=== PATIENT | female | born 1995 | race Caucasian/White ===

== ENCOUNTER 2018-05-01 10:39 | Emergency (ER) | payer BC ==
[~2018-05-01] VITALS: Ht 157.5 cm; Wt 70.5 kg
[~2018-05-01 10:39] MED LIST: NO HOME MEDICATIONS
[2018-05-01 10:41] VITALS: TEMP 98.1
[2018-05-01] MEDS ORDERED: BIRTH CONTROL (10:45)
[2018-05-01 11:37] LABS: BASO % 0.4 % (0.0-2.0); EOS # 0.1 (0.0-0.7); EOS % 0.8 % (0-4.0); GRAN # 5.2 (1.4-6.5); HEMATOCRIT 43.2 % (37.0-47.0); HEMOGLOBIN 14.4 g/dl (12.5-16.0); LYMPH # 2.3 (1.2-3.4); LYMPH % 27.6 % (20.0-51.0); MEAN CELL VOLUME 88 fl (80.0-100.0); MEAN CORPUSCULAR HEMOGLOBIN 29 pg (27.0-31.0); MEAN CORPUSCULAR HGB CONC 33 g/dl (33.0-37.0); MEAN PLATELET VOLUME 9.7 fl (7.4-10.4); MONO # 0.8 (0.1-0.6); PLATELET COUNT 291 K/mm3 (130-400); RED BLOOD COUNT 4.89 M/mm3 (4.10-5.30); REDCELL DISTRIBUTION WIDTH-CV 13.4 % (11.5-14.5)
[2018-05-01] MEDS ORDERED: ORTHO-CYCLEN 351 TAB PO (11:37)
[2018-05-01 11:47] LABS: BILIRUBIN,TOTAL 0.4 mg/dL (0.0-1.0); C-REACTIVE PROTEIN 1.1 mg/dL (0.0-0.9); CALCIUM 9.3 mg/dL (8.4-10.2); CREATININE, serum 0.73 mg/dL (0.52-1.25); POTASSIUM 3.9 mmol/L (3.4-5.0); TOTAL PROTEIN 7.5 gm/dL (6.4-8.2)
[2018-05-01 11:51] LABS: COLLECTION METHOD CATHETER
[2018-05-01 11:58] LABS: MUCOUS Present /lpf; PH 6 (5-8); SQUAMOUS EPITHELIAL None Seen /hpf; URINE APPEARANCE Clear; URINE BACTERIA None Seen /hpf; URINE BILIRUBIN Negative (NEGATIVE); URINE BLOOD Negative (NEGATIVE); URINE COLOR Straw; URINE GLUCOSE Negative (NEGATIVE); URINE KETONE Negative (NEGATIVE); URINE LEUKOCYTE ESTERASE Negative (NEGATIVE); URINE NITRATE Negative (NEGATIVE); URINE PROTEIN(semi-quant) Negative (NEGATIVE); URINE RBC None Seen /hpf; URINE UROBILINOGEN Negative (NEGATIVE)
[2018-05-01] MEDS ORDERED: NORCO 325 MG-51 TAB PO (13:07)
[2018-05-01 13:16] VITALS: BP 124/66; PULSE 72
== END 2018-05-01 13:17 | disposition home or self-care (01) ==
LOC: COL.ER 10:39
PROVIDERS: Nurse Practitioner
DX: R10.11 Right upper quadrant pain (principal); Z88.0 Allergy status to penicillin
CPT/HCPCS: J2270; J2405; J3010; J7030

== ENCOUNTER 2019-12-24 08:13 | Emergency (ER) | payer BC ==
[~2019-12-24] VITALS: Ht 157.5 cm; Wt 70.0 kg
[~2019-12-24 08:13] MED LIST changes: +BIRTH CONTROL; +NORCO 325 MG-51 TAB PO; +ORTHO-CYCLEN 351 TAB PO
[2019-12-24 08:16] VITALS: TEMP 97.9
[2019-12-24] MEDS ORDERED: WELLBUTRIN XL150 MG PO (08:29)
[2019-12-24] MEDS ORDERED: LO LOESTRIN FE1 TAB PO (08:31)
[2019-12-24] MEDS ORDERED: ADIPEX-P37.5 MG PO (08:32)
[2019-12-24 09:07] LABS: BASO # 0.1 (0.0-0.2); BASO % 0.8 % (0.0-2.0); EOS # 0.1 (0.0-0.7); EOS % 1.6 % (0-4.0); GRAN # 4.7 (1.4-6.5); GRAN % 62.8 % (42.2-75.2); HEMATOCRIT 45.2 % (37.0-47.0); HEMOGLOBIN 15.2 g/dl (12.5-16.0); LYMPH % 26.4 % (20.0-51.0); MEAN CELL VOLUME 87 fl (80.0-100.0); MEAN CORPUSCULAR HEMOGLOBIN 29 pg (27.0-31.0); MEAN CORPUSCULAR HGB CONC 34 g/dl (33.0-37.0); MEAN PLATELET VOLUME 9.6 fl (7.4-10.4); MONO # 0.6 (0.1-0.6); MONO % 8.1 % (1.7-9.3); PLATELET COUNT 349 K/mm3 (130-400); RED BLOOD COUNT 5.22 M/mm3 (4.10-5.30); REDCELL DISTRIBUTION WIDTH-CV 13.3 % (11.5-14.5)
[2019-12-24 09:14] LABS: ALBUMIN 4.6 gm/dL (3.5-5.0); BILIRUBIN,TOTAL 0.5 mg/dL (0.0-1.0); C-REACTIVE PROTEIN 0.8 mg/dL (0.0-0.9); CALCIUM 9.4 mg/dL (8.4-10.2); CREATININE, serum 0.89 (0.52-1.25); POTASSIUM 3.8 mmol/L (3.4-5.0); TOTAL PROTEIN 7.9 gm/dL (6.4-8.2)
[2019-12-24] MEDS ORDERED: ZOFRAN ODT4 MG PO (10:30)
[2019-12-24 10:37] LABS: COLLECTION METHOD CLEAN CATCH
[2019-12-24 10:48] LABS: PH 7 (5-8); SQUAMOUS EPITHELIAL 0-2 /hpf; URINE APPEARANCE Clear; URINE BACTERIA Rare /hpf; URINE BILIRUBIN Negative (NEGATIVE); URINE BLOOD 1+ (NEGATIVE); URINE COLOR Straw; URINE GLUCOSE Negative (NEGATIVE); URINE KETONE Negative (NEGATIVE); URINE LEUKOCYTE ESTERASE Negative (NEGATIVE); URINE NITRATE Negative (NEGATIVE); URINE PROTEIN(semi-quant) Negative (NEGATIVE); URINE RBC 0-2 /hpf; URINE UROBILINOGEN Negative (NEGATIVE)
[2019-12-24 11:58] VITALS: BP 152/98; PULSE 93
== END 2019-12-24 12:00 | disposition home or self-care (01) ==
LOC: COL.ER 08:13
PROVIDERS: Physician Assistant
DX: T43.295A Adverse effect of other antidepressants, initial encounter (principal); R03.0 Elevated blood-pressure reading, without diagnosis of hypertension; F41.9 Anxiety disorder, unspecified; Z88.0 Allergy status to penicillin
CPT/HCPCS: J2060; J2405; J7030

== ENCOUNTER 2021-12-30 08:58 | Inpatient (IN) | payer BC ==
[~2021-12-30] VITALS: Ht 157.5 cm; Wt 94.1 kg
[~2021-12-30 08:58] MED LIST changes: +ADIPEX-P37.5 MG PO; +LO LOESTRIN FE1 TAB PO; +WELLBUTRIN XL150 MG PO; +ZOFRAN ODT4 MG PO
--- NOTE | 2021-12-30 22:20 | NUR ---
G1 at 40.3 weeks gestation to LDR4 with and mother for cytotec induction of labor. Patient reports good movement, denies contractions, LOF, or vaginal bleeeding. Patient changed into gown, wedged left in bed. EFMs explained and applied. VS obtained. Plan of care reviewed.
[2021-12-30 23:00] VITALS: BP 135/92; PULSE 85; TEMP 98.2
[2021-12-30 23:30] VITALS: BP 114/65; PULSE 86
[2021-12-31] VITALS (55 sets, daily range): BP systolic 106–165; BP diastolic 61–102; PULSE 64–103; TEMP 98.3–98.8
--- NOTE | 2021-12-31 00:25 | NUR ---
0025-Cytotec plan discussed with patient and support people. Patient verbalizes understanding and agrees with plan. 0035-IV started to RH. Blood obtained and sent to lab. IV LR infusing. Assessments completed. Consents explained and signed. 0050-SVE /-3. First dose of Cytotec placed, see EMAR. Plan of care discussed.
--- NOTE | 2021-12-31 00:33 | NUR ---
0033-Late decel noted on FHR strip. Patient was repositioned, wedged left. FHR back to baseline.
[2021-12-31] MEDS ORDERED: PRENATAL TABLET PO (01:10)
[2021-12-31 01:49] LABS: BASO # 0.1 K/mm3 (0.0-0.2); BASO % 0.4 % (0.0-2.0); EOS # 0.1 K/mm3 (0.0-0.7); GRAN # 7.8 K/mm3 (1.4-6.5); GRAN % 66.6 % (42.2-75.2); HEMATOCRIT 37.1 % (37.0-47.0); HEMOGLOBIN 12.5 g/dl (12.5-16.0); LYMPH # 2.6 K/mm3 (1.2-3.4); LYMPH % 22.4 % (20.0-51.0); MEAN CELL VOLUME 87 fl (80.0-100.0); MEAN CORPUSCULAR HEMOGLOBIN 29 pg (27-31); MEAN CORPUSCULAR HGB CONC 34 g/dl (33.0-37.0); MEAN PLATELET VOLUME 10.4 fl (7.4-10.4); MONO # 1.1 K/mm3 (0.1-0.6); MONO % 9.2 % (1.7-9.3); PLATELET COUNT 272 K/mm3 (130-400); RED BLOOD COUNT 4.26 M/mm3 (4.10-5.30); REDCELL DISTRIBUTION WIDTH-CV 15.1 % (11.5-14.5)
--- NOTE | 2021-12-31 04:38 | NUR ---
0438-Late decel noted on FHR strip. This RN at bedside. Patient repositioned to . IV bolus started. 0441-FHR back to baseline. SVE FT/60/-3. Plan of care discussed.
--- NOTE | 2021-12-31 07:44 | NUR ---
RECURRENT VARIABLE DECELS DOWN TO 70BPM NOTED ON EFM. RN TO BEDSIDE. PATIENT LEFT LATERAL. LR BOLUS. VARIABLES CONTINUE. PATIENT RIGHT LATERAL. SVE FT/60/-3. MD MADHAVI ON UNIT AND UPDATED ON PATIENT. SEE PHYSICIAN NOTIFICATION. 1516 MD MADHAVI REVIEWS STRIPS. TO BEDSIDE AND REVIEWS PLAN OF CARE WITH PATIENT AND FAMILY.
--- NOTE | 2021-12-31 08:15 | NUR ---
PATIENT OFF EFM FOR BRP FROM [id number]. CARE ONGOING.
--- NOTE | 2021-12-31 09:11 | NUR ---
PATIENT REMOVED FROM EFM FOR BRP AT 0911. PATIENT PLACED ON EFM AT 0918. CARE ONGOING.
--- NOTE | 2021-12-31 10:17 | NUR ---
1017- Moderate variabilty, no variable decel noted in last 15min. Pitocin to 4mu.
--- NOTE | 2021-12-31 10:35 | NUR ---
Bilateral side lying hip release.
--- NOTE | 2021-12-31 10:55 | NUR ---
1055- Dr. Del Cid updated on pt. See physician notification. Patient position forward inversion/knees chest. 1100- Patient wedge right with RLS. Recurrent variable decels continue. 1105- Pitocin off.
--- NOTE | 2021-12-31 11:15 | NUR ---
VARIABLE DECELS NOTED DOWN TO 90BPM. AT 1103 FHR DECEL FROM BASELINE 155 TO 130 LASTING 60 SEC. SPONTANEOUS RETURN TO BASELINE. CONTRACTIONS TRACING INTERMITTENTLY. DIFFICULT TO DETERMINE FHR DECEL ONSET. EFM ADJUSTED. WILL CONTINUE TO MONITOR.
--- NOTE | 2021-12-31 11:30 | NUR ---
VARIABLE DECELS CONTINUE. AT 1118 FHR DECEL FROM BASELINE OF 155 TO 145 LASTING 50 SECS WITH SPONTANEOUS RETURN TO BASELINE. DIFFICULT TO DETERMINE ONSET. TOCO TRACING INTERMITTENTLY. TOCO ADJUSTED.
--- NOTE | 2021-12-31 11:31 | NUR ---
Dr. Del Cid to bedside and reviews POC with pt and family who verbalize understanding.
--- NOTE | 2021-12-31 11:33 | NUR ---
1131 - MD MADHAVI REVIEWED STRIPS. MD TO BEDSIDE FOR PLAN OF CARE DISCUSSION. PLAN FOR EPIDURAL NOW AND REASSESSMENT AROUND 1300. CARE ONGOING.
--- NOTE | 2021-12-31 13:52 | NUR ---
1352 - LATE DECEL NOTED, PATIENT LEFT LATERAL 1353 - LR BOLUS INITIATED 1354 - RIGHT LATERAL 1358 - PITOCIN STOPPED. MD MADHAVI AT BEDSIDE. PLAN OF CARE DISCUSSED WITH PATIENT AND FAMILY. 1359 - PATIENT FAMILY AGREE TO PRIMARY C SECTION PLAN OF CARE. Duke BRAN CRNA AT BEDSIDE TO DOSE EPIDURAL. 1406 - EFM DISCONTINUED. PATIENT TO OR SUITE VIA BED.
[2022-01-01 01:30] VITALS: BP 132/74; PULSE 80; TEMP 98.2
[2022-01-01 05:15] VITALS: BP 138/73; PULSE 78; TEMP 98.8
[2022-01-01 07:10] VITALS: BP 116/67; PULSE 82; TEMP 97.9
[2022-01-01] MEDS ORDERED: PROCARDIA XL 3030 MG PO (08:16)
[2022-01-01] MEDS ORDERED: MOTRIN 800800 MG/TAB PO (08:17)
[2022-01-01] MEDS ORDERED: PERCOCET 325 MG1 TA2 PO (08:17)
[2022-01-01 12:30] VITALS: BP 137/72; PULSE 85; TEMP 97.9
[2022-01-01 16:35] VITALS: BP 136/79; PULSE 82; TEMP 97.8
--- NOTE | 2022-01-01 18:25 | NUR ---
Report recieved. Plan of care reviewed. Pt is currently in shower. Significant other is in room.
[2022-01-01 20:00] VITALS: BP 128/79; PULSE 75; TEMP 98.1
--- NOTE | 2022-01-01 20:39 | NUR ---
EDUCATION VIDEOS PROVIDED TO PATIENT AND SIGNIFICANT OTHER.
[2022-01-02 08:10] VITALS: BP 118/73; PULSE 82; TEMP 98.2
[2022-01-02] MEDS ORDERED: LEXAPRO 10MG10 MG PO ×2 (09:59→11:02)
[2022-01-02] MEDS ORDERED: PERCOCET 325 MG1 TA2 PO (11:02)
[2022-01-02] MEDS ORDERED: MOTRIN 800800 MG/TAB PO (11:02)
--- NOTE | 2022-01-02 11:23 | NUR ---
Discharge instructions reviewed with pt and pt's spouse regarding medications, follow-up appointment, incision care and activity restrictions. Pt verbalizes understanding.
--- NOTE | 2022-01-02 11:54 | NUR ---
Pt discharged to home, ambulates out of facility accompanied by spouse, mother and this nurse. Pt's spouse carrying baby in car seat.
== END 2022-01-02 11:40 | disposition home or self-care (01) | DRG 788 ==
LOC: OB 08:58 → LDR 21:55 → OB 12-31 16:57
PROVIDERS: ADMIT Obstetrics & Gynecology
PROC: 10D00Z1 Extraction of Products of Conception, Low, Open Approach (ICD-10-PCS; principal; 2021-12-31)
PROC: 3E0P7VZ Introduction of Hormone into Female Reproductive, Via Natural or Artificial Opening (ICD-10-PCS; 2021-12-31)
PROC: 3E033VJ Introduction of Other Hormone into Peripheral Vein, Percutaneous Approach (ICD-10-PCS; 2021-12-31)
DX: O76 Abnormality in fetal heart rate and rhythm complicating labor and delivery (principal); O69.81X0 Labor and delivery complicated by cord around neck, without compression, not applicable or unspecified; Z37.0 Single live birth; Z3A.40 40 weeks gestation of pregnancy
CPT/HCPCS: J0690; J1885; J2270; J2400; J2405; J2590; J7120